=== PATIENT | female | born 1935 | race Caucasian/White ===

== ENCOUNTER 2017-05-27 11:58 | Outpatient (CLI) | payer MEDICARE, OTHER ==
[2017-05-27 13:13] LABS: Hemoglobin 13.5 g/dL (12.0-16.0); Mean Corpuscular Hemoglobin 30.4 pg (27.0-31.0); Mean Corpuscular Volume 92.3 fl (81.0-99.0); Mean Platelet Volume 8.8 fL (7.4-10.4); Platelet Count 245 thou/uL (130-400); RBC Distribution Width 12.7 % (11.5-14.5); Red Blood Cell (RBC) Count 4.42 mill/uL (4.20-5.40); White Blood Cell (WBC) Count 7.9 thou/uL (4.8-10.8)
[2017-05-27 13:18] LABS: Bilirubin Negative (Negative); Blood, Urine Negative (Negative); Clarity CLEAR (Clear); Glucose, Urine (Dipstick) Negative (Negative); Leukocyte Small (Negative); Nitrite Negative (Negative); Protein, Urine (Dipstick) 30 mg/dL (Neg-Trace); Specific Gravity, Urine 1.016 (1.002-1.036)
[2017-05-27 13:23] LABS: Bacteria/HPF None Seen HPF (None Seen); Hyaline Casts/LPF 0-3 HYALINE CAST LPF (0-3 Hyaline); RBC/HPF 0-3 HPF (0-3); Squamous Epithelial 0-3 HPF (0-3)
[2017-05-27 13:31] LABS: PTT 28.9 SEC (22.9-36.1)
[2017-05-27 13:43] LABS: Anion Gap 11 mmol/L (10-20); BUN (Urea Nitrogen) 20 mg/dL (9.8-20.1); Calc. Creatinine Clearance 0 mL/min (70-130); Carbon Dioxide 32 mmol/L (23-31); Chloride 100 mmol/L (98-107); Estimated GFR-MDRD 60; Glucose 89 mg/dL (83-110); Potassium 3.8 mmol/L (3.5-5.1); Sodium 139 mmol/L (136-145)
== END 2017-05-27 11:59 | disposition home or self-care (01) ==
LOC: LABBT 11:58
PROVIDERS: ATTEND Orthopaedic Surgery
DX: Z01.818 Encounter for other preprocedural examination (principal); M17.11 Unilateral primary osteoarthritis, right knee
CPT/HCPCS: 80048; 81001; 85027; 85610; 85730; 86850; 86900; 86901; 87081

== ENCOUNTER 2017-06-03 05:25 | Day surgery (SDC) | payer MEDICARE, OTHER ==
[2017-05-27 12:16] VITALS: BMI 25.9
[2017-06-03] MEDS ORDERED: CEFAZOLIN/Water 2 GM/20 ML SYRINGE ONE (05:57)
[2017-06-03] MEDS ORDERED: Vancomycin HCl 500 MG VIAL ONE (05:57)
[2017-06-03] MEDS ORDERED: Fentanyl 100 MCG/2 ML VIAL ONE ×2 (06:15→06:29)
[2017-06-03] MEDS ORDERED: Midazolam HCl 2 mg/2 ml Vial ONE (06:29)
[2017-06-03] MEDS ORDERED: Levofloxacin 500 mg/D5W 100 ml Premix Bag ONE (06:43)
[2017-06-03] MEDS ORDERED: Ondansetron HCl/PF 4 MG/2 ML Vial IVP PRN ×3 (06:57→09:19)
[2017-06-03] MEDS ORDERED: traMADol HCl 50 MG TAB PO PRN (06:57)
[2017-06-03] MEDS ORDERED: Ketorolac Tromethamine 30 MG/ML VIAL IVP PRN (06:57)
[2017-06-03] MEDS ORDERED: Zolpidem Tartrate 5 MG TAB PO PRN (06:57)
[2017-06-03] MEDS ORDERED: Promethazine HCl 25 MG/ML VIAL IM PRN ×2 (06:57→09:19)
[2017-06-03] MEDS ORDERED: Fentanyl 100 MCG/2 ML VIAL IV PRN (06:58)
[2017-06-03] MEDS ORDERED: HYDROcodone/Acetaminophen 7.5/325 mg Tablet PO PRN ×2 (06:58→06:59)
[2017-06-03] MEDS ORDERED: Bupivacaine/Epinephrine 0.25% 30 ML VIAL ONE (07:45)
[2017-06-03 08:41] LABS: Bilirubin Negative (Negative); Blood, Urine Negative (Negative); Clarity CLEAR (Clear); Glucose, Urine (Dipstick) Negative (Negative); Leukocyte Negative (Negative); Nitrite Negative (Negative); Protein, Urine (Dipstick) Trace mg/dL (Neg-Trace); Specific Gravity, Urine 1.014 (1.002-1.036); Urobilinogen 0.2 mg/dL (0.2-1.0); pH, Urine 5.5 (5.0-9.0)
[2017-06-03 08:44] LABS: Bacteria/HPF None Seen HPF (None Seen); Hyaline Casts/LPF 0-3 HYALINE CAST LPF (0-3 Hyaline); Pathc Cast-AUWi Flag 0.14 (0-2.49); RBC/HPF 0-3 HPF (0-3); Squamous Epithelial None Seen HPF (0-3); WBC/HPF None Seen HPF (0-3)
[2017-06-03] MEDS ORDERED: Labetalol HCl 100 MG/20 ML VIAL SLOW IVP PRN (09:19)
[2017-06-03] MEDS ORDERED: Promethazine HCl 25 MG/ML VIAL SLOW IVP PRN (09:19)
[2017-06-03] MEDS ORDERED: Labetalol HCl 100 MG/20 ML VIAL ONE (09:32)
[2017-06-03] MEDS ORDERED: Acetaminophen 325 MG TAB PO PRN (10:12)
[2017-06-03] MEDS ORDERED: Senokot S 8.6-50 MG TAB PO SCH ×2 (10:12→10:45)
[2017-06-03] MEDS ORDERED: Fentanyl 100 MCG/2 ML VIAL SLOW IVP PRN (10:12)
[2017-06-03] MEDS ORDERED: diphenhydrAMINE 25 MG CAP PO PRN (10:12)
[2017-06-03] MEDS ORDERED: Multivitamin W/ Minerals 1 TAB PO SCH ×2 (10:12→10:45)
[2017-06-03] MEDS ORDERED: HYDROcodone/Acetaminophen 10/325 mg Tablet PO PRN ×2 (10:12)
[2017-06-03] MEDS ORDERED: Aspirin 81 mg Enteric Coated Tablet PO SCH ×2 (10:12→10:45)
[2017-06-03] MEDS ORDERED: Ferrous Gluconate 324 MG TAB PO SCH ×2 (10:12→10:45)
--- NOTE | 2017-06-03 10:17 | OP ---
DATE OF PROCEDURE: 06/03/2017 PREOPERATIVE DIAGNOSIS: Right knee osteoarthritis. POSTOPERATIVE DIAGNOSIS: Right knee osteoarthritis. PROCEDURE PERFORMED: Right total knee arthroplasty. STAFF: Joshua Olson M.D. SERVICE CAR OPERATOR: Nestor Cazares PA-C ANESTHESIA: The patient received LMA with an adductor canal with a single shot sciatic. ESTIMATED BLOOD LOSS: 100 mL. TOURNIQUET TIME: 70 minutes at 300 mmHg. ANTIBIOTICS: Ancef 2 grams, vancomycin 1 gram, Levaquin 500 grams, TXA 1 gram. IMPLANTS: Hayden size 2 CR femur, a Triathlon size 2 CR femur, a size 2 primary Triathlon tibial ba seplate, a size 2 CS 9 mm Triathlon X3 poly and an S27 symmetric Triathlon X3 poly patella button. COMPLICATIONS: None. HISTORY OF PRESENT ILLNESS: Ms. Gallego is a pleasant 82-year-old female who presented to me with a hi story of right knee pain. The patient had a history of right knee pain, failed conservative measures . The patient understood the risks and benefits of right total knee arthroplasty to include pain, sc ar, bleeding, infection, damage to vital structures, decreased range of motion or strength, continued pain despite surgical intervention, loss of life or limb. The patient understood the risks and bene fits and elected to proceed. PROCEDURE NOTE: Time-out was performed designating the patient's right lower extremity as the operat jaja site based on sight, consents, markings. After completion of timeout, the patient's right lower extremity was prepped and draped in sterile fashion. Tourniquet was brought up and left up for a tot al of 70 minutes. The patient's anterior midline incision was made medial patellar approach was made . We excised the fat pad, released soft tissues medially over the patella, took down some of them orozco periorly over the femur, exposed the distal femur, mapped the distal femur, cut 0 degrees varus valgu s 10/8 with 4 degrees of slope. The patient had the fragment excised. We then moved the medial late ral meniscus. We placed our guide to measure our sizing, pinned it into place. On 3 views right ext ernal rotation, sized to a 3, pinned it into place, cut, felt that the anterior cut needed to be a la rger so we cut for a 2, removed the excess bone. We cut all of our anterior, posterior chamfer cuts, removed excess bone, placed a posterior PCL retractor into position, mapped out our tibia, cut mappe d out and placed our jig, cut our femur into 2, 7, 4 degrees posterior slope. The patient had sectio n of bone resected. We then placed a lamina negative notcher, medial lateral menisci posterior osteophytes, decompressed the PCL and the ACL, had good overall alignment of the knee, elevated the soft tissues a way. I liked the overall position. We then pinned our tibial tray size 2 tibial tray in line with tima owen anterior 1/3 of the patella tibial tubercle down the length of the femur. We then placed our poly , placed our femoral implant into position. We pulled it into full flexion and extension. We had a little bit of flexion, but the patient had good overall tracking was stable. It came to full extensi on, stable in flexion and mid flexion as well as in full extension. We then removed our final implan ts, placed our keel for a size 2, removed all the implants. We cut our patella down from about 22 to about 11 mm, placed A27 patella symmetrically retracted and I liked that, so we drilled holes for ou r femur and then cut our keel for tibia. Removed all the implants, cemented our tibia, placed our po ly, removed any excess cement before placing our poly or our tibia, placed our femur in position, rem radha all the blood and cement, washed, cemented our femur into place, removed any excess cement. We then everted, placed our patellar button and cemented in place, removed all excess cement. We then f lexed the knee up, removed the remaining cement, washed the joint, everted the patella, closing with #2 Vicryl. We closed with 2 Quill, 0 Quill, 2-0 Quill, and glue. The patient will be admitted for Jose Hernadez postop protocol. Aspirin twice a day and follow in-house. Before we closed the skin we in jected 30 mL of Marcaine into the joint to help with hemostasis, epinephrine as well to help with nik n control.
[2017-06-03] MEDS: Dextrose 5 %-0.45 % NaCl 1,000 ML IV SCH ×2 (11:14→21:09)
--- NOTE | 2017-06-03 11:31 | RAD ---
RIGHT KNEE 2 VIEWS: Date: 06/03/17 HISTORY: 82-year-old female with history of status post total right knee replacement. FINDINGS: Recent total right knee replacement changes are noted. No dislocation or periprosthetic fracture. IMPRESSION: Unremarkable recent total knee replacement. POS: MANGO
--- NOTE | 2017-06-03 13:17 | PDOC.PN ---
- Subjective Encounter Start Date: 06/03/17 Encounter Start Time: 13:15 Pt seen for management of medical comorbidities, including hypertension. Denies chest pain, shortness of breath, fevers or chills. - Objective MAR Reviewed: Yes Vital Signs & Weight: Vital Signs (12 hours) Temp Pulse Resp BP Pulse Ox 06/03/17 10:45 98.1 F 70 18 161/73 H 95 Weight Weight 124 lb Phys Exam - Physical Examination Constitutional: NAD HEENT: moist MMs Neck: supple Respiratory: clear to auscultation bilateral Cardiovascular: RRR Gastrointestinal: soft s/p R knee surgery Psychiatric: normal affect Dx/Plan (1) HTN (hypertension) Code(s): I10 - ESSENTIAL (PRIMARY) HYPERTENSION Status: Chronic Comment: Resume home medications including hydrochlorothiazide and beta isaias. Monitor vital signs, titrate antihypertensives as needed. PRN IV hydralazine for blood pressure spikes. (2) Hypothyroidism Code(s): E03.9 - HYPOTHYROIDISM, UNSPECIFIED Status: Chronic Comment: continue synthroid (3) Dyslipidemia Code(s): E78.5 - HYPERLIPIDEMIA, UNSPECIFIED Status: Chronic Comment: continue statin - Plan plan discussed w/ family, PT/OT, out of bed/ambulate * . Patient is full code. DVT prophylaxis and pain management per orthopedic surgery. Review of Systems - Review of Systems Constitutional: negative: fever, chills, sweats, weakness Respiratory: negative: Cough, Shortness of Breath, Wheezing Gastrointestinal: negative: Nausea, Vomiting, Abdominal Pain Musculoskeletal: Other (R knee pain /10) - Medications/Allergies Allergies/Adverse Reactions: Allergies Allergy/AdvReac Type Severity Reaction Status Date / Time codeine Allergy Rash Verified 05/27/17 12:19 Medications: Current Medications Acetaminophen (Tylenol) 650 mg PO Q4H PRN PRN Reason: VEGA/ T > 101F; Mild Pain (1-3) Hydrocodone Bitart/Acetaminophen ([place] 7.5/325) 1 tab PO Q4H PRN PRN Reason: Mild Pain (1-3) Hydrocodone Bitart/Acetaminophen ([place] 7.5/325) 2 tab PO Q4H PRN PRN Reason: Moderate Pain (4-6) Hydrocodone Bitart/Acetaminophen ([place] 10/325) 1 tab PO Q4H PRN PRN Reason: Moderate Pain (4-6) Hydrocodone Bitart/Acetaminophen ([place] 10/325) 2 tab PO Q4H PRN PRN Reason: Severe Pain (7-10) Aspirin (Ecotrin) 81 mg PO BID [facility] Atenolol (Tenormin) 50 mg PO HS [facility] Cefazolin Sodium (Ancef) 2 gm SLOW IVP Q8HR [facility] Stop: 06/03/17 22:01 Diphenhydramine HCl (Benadryl) 25 mg PO Q6H PRN PRN Reason: Itching Fentanyl (Sublimaze) 50 mcg IV Q1H PRN PRN Reason: BREAKTHROUGH PAIN Fentanyl (Sublimaze) 100 mcg SLOW IVP Q1H PRN PRN Reason: Severe Pain (7-10) Ferrous Gluconate (Fergon) 324 mg PO BID [facility] Hydralazine HCl (Apresoline) 10 mg SLOW IVP Q6H PRN PRN Reason: SBP Greater Than 170 Hydrochlorothiazide (Hydrochlorothiazide) 25 mg PO QAM [facility] Bupivacaine HCl 50 ml/ Sodium (Chloride) 100 mls @ 0 mls/hr NERVE BLCK INF [facility] PRN Reason: As Directed Dextrose/Sodium Chloride (D5 1/2 Ns) 1,000 mls @ 100 mls/hr IV .Q10H [facility] Last Admin: 06/03/17 11:14 Dose: Not Given Vancomycin HCl 1 gm/ Device 200 mls @ 200 mls/hr IVPB 1800 [facility] Stop: 06/03/17 18:59 Iron/Minerals/Multivitamins (Theragran M) 1 tab PO DAILY [facility] Ketorolac Tromethamine (Toradol) 15 mg IVP Q6H PRN PRN Reason: Moderate Pain (4-6) Stop: 06/06/17 06:58 Labetalol HCl (Normodyne) 10 mg SLOW IVP Q10MIN PRN PRN Reason: SBP Greater Than 180 Stop: 06/04/17 09:20 Levothyroxine Sodium (Synthroid) 50 mcg PO QAM [facility] Ondansetron HCl (Zofran) 4 mg IVP Q6H PRN PRN Reason: Nausea/Vomiting Promethazine HCl (Phenergan) 12.5 mg IM Q4H PRN PRN Reason: Nausea Senna/Docusate Sodium (Senokot S) 2 tab PO BID [facility] Simvastatin (Zocor) 20 mg PO HS [facility]UE Sodium Chloride (Flush - Normal Saline) 10 ml IVF PRN PRN PRN Reason: Saline Flush Tramadol HCl (Ultram) 50 mg PO Q6H PRN PRN Reason: Mild Pain (1-3) Tramadol HCl (Ultram) 100 mg PO Q6H PRN PRN Reason: Moderate Pain 4-6 Zolpidem Tartrate (Ambien) 5 mg PO HSPRN PRN PRN Reason: Insomnia
[2017-06-03] MEDS: CEFAZOLIN/Water 2 GM/20 ML SYRINGE SLOW IVP SCH ×2 (14:18→21:21)
[2017-06-03] MEDS ORDERED: Ropivacaine 0.5% HCl/PF (150 MG/30 ML VIAL) ONE (16:23)
[2017-06-03] MEDS ORDERED: Ropivacaine 0.2% HCl/PF (40 MG/20 ML VIAL) ONE (16:23)
[2017-06-03] MEDS ORDERED: Ondansetron HCl/PF 4 MG/2 ML Vial ONE (16:37)
[2017-06-03] MEDS ORDERED: PROPOFOL 200 MG/20 ML VIAL ONE (16:37)
[2017-06-03] MEDS ORDERED: Dexamethasone 20 MG/5 ML VIAL ONE (16:37)
[2017-06-03] MEDS ORDERED: Lidocaine 1% PF 5 ML VIAL ONE (16:37)
[2017-06-03] MEDS ORDERED: Vancomycin HCl 1 GM in Premix Bag 1 BAG IVPB SCH (18:00)
[2017-06-03] MEDS: Ferrous Gluconate 324 MG TAB PO SCH (21:13)
[2017-06-03] MEDS: Aspirin 81 mg Enteric Coated Tablet PO SCH (21:13)
[2017-06-03] MEDS: Senokot S 8.6-50 MG TAB PO SCH (21:13)
[2017-06-03] MEDS: Atenolol 50 MG TAB PO SCH (21:13)
[2017-06-03] MEDS: Simvastatin 20 MG TAB PO SCH (21:14)
[2017-06-03] MEDS: Bupivacaine 0.5% 50 ML in Sodium Chloride 0.9% 50 ML NERVE BLCK SCH (21:30)
[2017-06-04] MEDS: hydrALAZINE 20 MG/ML VIAL SLOW IVP PRN (04:04)
[2017-06-04] MEDS: Levothyroxine Sodium 50 MCG TAB PO SCH (04:05)
[2017-06-04 04:25] LABS: Hemoglobin 10.9 g/dL (12.0-16.0); Mean Corpuscular HGB CONC 33.3 g/dL (32.0-36.0); Mean Corpuscular Hemoglobin 30.5 pg (27.0-31.0); Mean Corpuscular Volume 91.6 fl (81.0-99.0); Mean Platelet Volume 8.6 fL (7.4-10.4); Platelet Count 223 thou/uL (130-400); RBC Distribution Width 12.8 % (11.5-14.5); Red Blood Cell (RBC) Count 3.57 mill/uL (4.20-5.40); White Blood Cell (WBC) Count 10.8 thou/uL (4.8-10.8)
[2017-06-04] MEDS: Dextrose 5 %-0.45 % NaCl 1,000 ML IV SCH ×3 (08:06→21:41)
[2017-06-04] MEDS: Hydrochlorothiazide 25 MG TAB PO SCH (08:52)
[2017-06-04] MEDS: Senokot S 8.6-50 MG TAB PO SCH ×2 (08:52→20:26)
[2017-06-04] MEDS: Ferrous Gluconate 324 MG TAB PO SCH ×2 (08:53→20:26)
[2017-06-04] MEDS: Multivitamin W/ Minerals 1 TAB PO SCH (08:53)
[2017-06-04] MEDS: Aspirin 81 mg Enteric Coated Tablet PO SCH ×2 (08:53→20:25)
[2017-06-04] MEDS: Bupivacaine 0.5% 50 ML in Sodium Chloride 0.9% 50 ML NERVE BLCK SCH (11:14)
--- NOTE | 2017-06-04 14:18 | PDOC.PN ---
- Subjective Encounter Start Date: 06/04/17 Encounter Start Time: 13:00 Pt seen for followup re: hypertension. Denies chest pain, shortness of breath, fevers or chills. - Objective MAR Reviewed: Yes Vital Signs & Weight: Vital Signs (12 hours) Temp Pulse Resp BP BP BP Pulse Ox 06/04/17 08:00 97.3 F L 64 15 99 06/04/17 07:43 97.3 F L 64 15 145/63 H 99 06/04/17 04:04 69 189/75 H 06/04/17 03:59 98.5 F 69 18 189/75 H 97 Weight Admit Weight 124 lb Weight 124 lb I&O: 06/03/17 06/04/17 06/05/17 06:59 06:59 06:59 Intake Total 1200 Output Total 1300 Balance -100 Result Diagrams: 06/04/17 03:26 Phys Exam - Physical Examination Constitutional: NAD HEENT: moist MMs Neck: supple Respiratory: clear to auscultation bilateral Cardiovascular: RRR Gastrointestinal: soft s/p R knee surgery Neurological: moves all 4 limbs Psychiatric: normal affect Dx/Plan (1) HTN (hypertension) Code(s): I10 - ESSENTIAL (PRIMARY) HYPERTENSION Status: Chronic Comment: Continue hydrochlorothiazide and beta isaias. Monitor vital signs, titrate antihypertensives as needed. Pt received one dose of IV hydralazine. (2) Hypothyroidism Code(s): E03.9 - HYPOTHYROIDISM, UNSPECIFIED Status: Chronic Comment: stable , continue synthroid (3) Dyslipidemia Code(s): E78.5 - HYPERLIPIDEMIA, UNSPECIFIED Status: Chronic Comment: stable , continue statin - Plan * . Review of Systems - Review of Systems Respiratory: negative: Cough, Shortness of Breath, Hemoptysis, SOB with Excertion, Wheezing Cardiovascular: negative: chest pain, palpitations, orthopnea, edema, light headedness - Medications/Allergies Allergies/Adverse Reactions: Allergies Allergy/AdvReac Type Severity Reaction Status Date / Time codeine Allergy Rash Verified 05/27/17 12:19 Medications: Current Medications Acetaminophen (Tylenol) 650 mg PO Q4H PRN PRN Reason: VEGA/ T > 101F; Mild Pain (1-3) Hydrocodone Bitart/Acetaminophen ([place] 7.5/325) 1 tab PO Q4H PRN PRN Reason: Mild Pain (1-3) Hydrocodone Bitart/Acetaminophen ([place] 7.5/325) 2 tab PO Q4H PRN PRN Reason: Moderate Pain (4-6) Hydrocodone Bitart/Acetaminophen ([place] 10/325) 1 tab PO Q4H PRN PRN Reason: Moderate Pain (4-6) Hydrocodone Bitart/Acetaminophen ([place] 10/325) 2 tab PO Q4H PRN PRN Reason: Severe Pain (7-10) Aspirin (Ecotrin) 81 mg PO BID [facility] Last Admin: 06/04/17 08:53 Dose: 81 mg Atenolol (Tenormin) 50 mg PO HS [facility] Last Admin: 06/03/17 21:13 Dose: 50 mg Diphenhydramine HCl (Benadryl) 25 mg PO Q6H PRN PRN Reason: Itching Fentanyl (Sublimaze) 50 mcg IV Q1H PRN PRN Reason: BREAKTHROUGH PAIN Fentanyl (Sublimaze) 100 mcg SLOW IVP Q1H PRN PRN Reason: Severe Pain (7-10) Ferrous Gluconate (Fergon) 324 mg PO BID [facility] Last Admin: 06/04/17 08:53 Dose: 324 mg Hydralazine HCl (Apresoline) 10 mg SLOW IVP Q6H PRN PRN Reason: SBP Greater Than 170 Last Admin: 06/04/17 04:04 Dose: 10 mg Hydrochlorothiazide (Hydrochlorothiazide) 25 mg PO QAM [facility] Last Admin: 06/04/17 08:52 Dose: 25 mg Bupivacaine HCl 50 ml/ Sodium (Chloride) 100 mls @ 0 mls/hr NERVE BLCK INF [facility] PRN Reason: As Directed Last Admin: 06/04/17 11:14 Dose: 100 mls Dextrose/Sodium Chloride (D5 1/2 Ns) 1,000 mls @ 100 mls/hr IV .Q10H [facility] Last Admin: 06/04/17 08:06 Dose: Not Given Iron/Minerals/Multivitamins (Theragran M) 1 tab PO DAILY [facility] Last Admin: 06/04/17 08:53 Dose: 1 tab Ketorolac Tromethamine (Toradol) 15 mg IVP Q6H PRN PRN Reason: Moderate Pain (4-6) Stop: 06/06/17 06:58 Last Admin: 06/04/17 03:50 Dose: 15 mg Levothyroxine Sodium (Synthroid) 50 mcg PO 0600 [facility] Last Admin: 06/04/17 04:05 Dose: 50 mcg Ondansetron HCl (Zofran) 4 mg IVP Q6H PRN PRN Reason: Nausea/Vomiting Promethazine HCl (Phenergan) 12.5 mg IM Q4H PRN PRN Reason: Nausea Senna/Docusate Sodium (Senokot S) 2 tab PO BID [facility] Last Admin: 06/04/17 08:52 Dose: 2 tab Simvastatin (Zocor) 20 mg PO HS [facility] Last Admin: 06/03/17 21:14 Dose: 20 mg Sodium Chloride (Flush - Normal Saline) 10 ml IVF PRN PRN PRN Reason: Saline Flush Tramadol HCl (Ultram) 50 mg PO Q6H PRN PRN Reason: Mild Pain (1-3) Tramadol HCl (Ultram) 100 mg PO Q6H PRN PRN Reason: Moderate Pain 4-6 Zolpidem Tartrate (Ambien) 5 mg PO HSPRN PRN PRN Reason: Insomnia
[2017-06-04] MEDS: traMADol HCl 50 MG TAB PO PRN (16:14)
[2017-06-04] MEDS: Atenolol 50 MG TAB PO SCH (20:26)
[2017-06-04] MEDS: Simvastatin 20 MG TAB PO SCH (20:27)
[2017-06-05] MEDS: hydrALAZINE 20 MG/ML VIAL SLOW IVP PRN ×2 (00:30→23:57)
[2017-06-05] MEDS: Bupivacaine 0.5% 50 ML in Sodium Chloride 0.9% 50 ML NERVE BLCK SCH (00:32)
[2017-06-05] MEDS: traMADol HCl 50 MG TAB PO PRN (00:32)
[2017-06-05 05:08] LABS: Hemoglobin 10.9 g/dL (12.0-16.0); Mean Corpuscular HGB CONC 34.4 g/dL (32.0-36.0); Mean Corpuscular Hemoglobin 31.8 pg (27.0-31.0); Mean Corpuscular Volume 92.2 fl (81.0-99.0); Mean Platelet Volume 8.9 fL (7.4-10.4); Platelet Count 211 thou/uL (130-400); RBC Distribution Width 12.8 % (11.5-14.5); Red Blood Cell (RBC) Count 3.45 mill/uL (4.20-5.40); White Blood Cell (WBC) Count 11.4 thou/uL (4.8-10.8)
[2017-06-05] MEDS: Levothyroxine Sodium 50 MCG TAB PO SCH (06:42)
[2017-06-05] MEDS: Aspirin 81 mg Enteric Coated Tablet PO SCH ×2 (08:29→20:48)
[2017-06-05] MEDS: Senokot S 8.6-50 MG TAB PO SCH ×2 (08:29→20:49)
[2017-06-05] MEDS: Ferrous Gluconate 324 MG TAB PO SCH ×2 (08:29→20:49)
[2017-06-05] MEDS: Hydrochlorothiazide 25 MG TAB PO SCH (08:29)
[2017-06-05] MEDS: Multivitamin W/ Minerals 1 TAB PO SCH (08:29)
[2017-06-05] MEDS ORDERED: Amlodipine 10 MG TAB PO SCH (14:00)
[2017-06-05] MEDS: Dextrose 5 %-0.45 % NaCl 1,000 ML IV SCH ×2 (15:03→23:24)
--- NOTE | 2017-06-05 17:08 | PDOC.PN ---
- Subjective Encounter Start Date: 06/05/17 Encounter Start Time: 17:06 Pt seen for followup re: lethargy. Sleepy but arousable, denies chest pain, shortness of breath, fevers or chills. No nausea or vomiting. - Objective MAR Reviewed: Yes Vital Signs & Weight: Vital Signs (12 hours) Temp Pulse Resp BP BP Pulse Ox 06/05/17 15:15 99.0 F 65 16 153/74 H 94 L 06/05/17 14:54 62 155/66 H 06/05/17 11:37 98.5 F 62 14 151/73 H 92 L 06/05/17 08:00 99.0 F 65 16 92 L 06/05/17 07:54 99.5 F 64 16 151/69 H 93 L Weight Admit Weight 124 lb Weight 124 lb I&O: 06/04/17 06/05/17 06/06/17 06:59 06:59 06:59 Intake Total 1200 576 Output Total 1300 4050 1600 Balance -100 -9777 -5925 Result Diagrams: 06/05/17 17:59 06/05/17 17:59 Phys Exam - Physical Examination Constitutional: NAD HEENT: moist MMs Neck: supple Respiratory: clear to auscultation bilateral Cardiovascular: RRR Gastrointestinal: soft s/p R knee surgery Neurological: moves all 4 limbs Psychiatric: normal affect Dx/Plan (1) Acute encephalopathy Code(s): G93.40 - ENCEPHALOPATHY, UNSPECIFIED Status: Acute Comment: Initiate workup including CT brain, urinalysis and bloodwork. (2) HTN (hypertension) Code(s): I10 - ESSENTIAL (PRIMARY) HYPERTENSION Status: Chronic Comment: SBP in 130s. Discussed with patient and daughter. They will followup with PCP to reassess her blood pressure medications. Pt received one dose of hydralazine overnight. (3) Hypothyroidism Code(s): E03.9 - HYPOTHYROIDISM, UNSPECIFIED Status: Chronic Comment: stable (4) Dyslipidemia Code(s): E78.5 - HYPERLIPIDEMIA, UNSPECIFIED Status: Chronic Comment: stable - Plan * . Review of Systems - Review of Systems Respiratory: negative: Cough, Dry, Shortness of Breath, Hemoptysis, SOB with Excertion, Pleuritic Pain, Sputum, Wheezing Cardiovascular: negative: chest pain, palpitations, orthopnea, paroxysmal nocturnal dyspnea, edema, light headedness Neurological: negative: Weakness, Numbness, Incoordination, Change in Speech, Confusion, Seizures - Medications/Allergies Allergies/Adverse Reactions: Allergies Allergy/AdvReac Type Severity Reaction Status Date / Time codeine Allergy Rash Verified 05/27/17 12:19 Medications: Current Medications Acetaminophen (Tylenol) 650 mg PO Q4H PRN PRN Reason: VEGA/ T > 101F; Mild Pain (1-3) Hydrocodone Bitart/Acetaminophen ([place] 7.5/325) 1 tab PO Q4H PRN PRN Reason: Mild Pain (1-3) Hydrocodone Bitart/Acetaminophen ([place] 7.5/325) 2 tab PO Q4H PRN PRN Reason: Moderate Pain (4-6) Hydrocodone Bitart/Acetaminophen ([place] 10/325) 1 tab PO Q4H PRN PRN Reason: Moderate Pain (4-6) Hydrocodone Bitart/Acetaminophen ([place] 10/325) 2 tab PO Q4H PRN PRN Reason: Severe Pain (7-10) Amlodipine Besylate (Norvasc) 5 mg PO DAILY [facility] Aspirin (Ecotrin) 81 mg PO BID [facility] Last Admin: 06/05/17 08:29 Dose: 81 mg Atenolol (Tenormin) 50 mg PO HS [facility] Last Admin: 06/04/17 20:26 Dose: 50 mg Diphenhydramine HCl (Benadryl) 25 mg PO Q6H PRN PRN Reason: Itching Fentanyl (Sublimaze) 50 mcg IV Q1H PRN PRN Reason: BREAKTHROUGH PAIN Fentanyl (Sublimaze) 100 mcg SLOW IVP Q1H PRN PRN Reason: Severe Pain (7-10) Ferrous Gluconate (Fergon) 324 mg PO BID [facility] Last Admin: 06/05/17 08:29 Dose: 324 mg Hydralazine HCl (Apresoline) 10 mg SLOW IVP Q6H PRN PRN Reason: SBP Greater Than 170 Last Admin: 06/05/17 00:30 Dose: 10 mg [facility]chloroth[facility]) [facility] Last Admin: 06/05/17 08:29 Dose: 25 mg Bupivacaine HCl 50 ml/ Sodium (Chloride) 100 mls @ 0 mls/hr NERVE BLCK INF [facility] PRN Reason: As Directed Last Admin: 06/05/17 00:32 Dose: 100 mls Dextrose/Sodium Chloride (D5 1/2 Ns) 1,000 mls @ 100 mls/hr IV .Q10H [facility] Last Admin: 06/05/17 15:03 Dose: Not Given Iron/Minerals/Multivitamins (Theragran M) 1 tab PO DAILY [facility] Last Admin: 06/05/17 08:29 Dose: 1 tab Ketorolac Tromethamine (Toradol) 15 mg IVP Q6H PRN PRN Reason: Moderate Pain (4-6) Stop: 06/06/17 06:58 Last Admin: 06/04/17 03:50 Dose: 15 mg Levothyroxine Sodium (Synthroid) 50 mcg PO 0600 [facility] Last Admin: 06/05/17 06:42 Dose: 50 mcg Ondansetron HCl (Zofran) 4 mg IVP Q6H PRN PRN Reason: Nausea/Vomiting Promethazine HCl (Phenergan) 12.5 mg IM Q4H PRN PRN Reason: Nausea Senna/Docusate Sodium (Senokot S) 2 tab PO BID [facility] Last Admin: 06/05/17 08:29 Dose: 2 tab Simvastatin (Zocor) 20 mg PO HS [facility] Last Admin: 06/04/17 20:27 Dose: 20 mg Sodium Chloride (Flush - Normal Saline) 10 ml IVF PRN PRN PRN Reason: Saline Flush Tramadol HCl (Ultram) 50 mg PO Q6H PRN PRN Reason: Mild Pain (1-3) Tramadol HCl (Ultram) 100 mg PO Q6H PRN PRN Reason: Moderate Pain 4-6 Last Admin: 06/05/17 00:32 Dose: 100 mg Zolpidem Tartrate (Ambien) 5 mg PO HSPRN PRN PRN Reason: Insomnia
[2017-06-05 18:08] LABS: #Eosinphils 0.1 thou/uL (0.0-0.7); #Lymphocytes 1.9 thou/uL (1.20-3.40); #Monocytes 0.9 thou/uL (0.11-0.59); #Neutrophils 11.3 thou/uL (1.40-6.50); %Basophils 0.2 % (0.0-1.0); %Eosinophils 0.4 % (0.0-10.0); %Lymphocytes 13.2 % (21.0-51.0); %Monocytes 6.4 % (0.0-10.0); %Neutrophils 79.8 % (42.0-75.0); Hemoglobin 12.1 g/dL (12.0-16.0); Mean Corpuscular Hemoglobin 31.3 pg (27.0-31.0); Mean Corpuscular Volume 91.9 fl (81.0-99.0); Mean Platelet Volume 8.1 fL (7.4-10.4); Platelet Count 231 thou/uL (130-400); RBC Distribution Width 12.8 % (11.5-14.5); Red Blood Cell (RBC) Count 3.86 mill/uL (4.20-5.40); White Blood Cell (WBC) Count 14.1 thou/uL (4.8-10.8)
[2017-06-05 18:28] LABS: Lactic Acid 1.6 mmol/L (0.5-2.2)
[2017-06-05 18:32] LABS: ALT (SGPT) 7 U/L (8-55); AST (SGOT) 21 U/L (5-34); Albumin 3.8 g/dL (3.4-4.8); Alkaline Phosphatase 77 U/L (40-150); Anion Gap 15 mmol/L (10-20); BUN (Urea Nitrogen) 20 mg/dL (9.8-20.1); Bilirubin, Total 0.8 mg/dL (0.2-1.2); Calc. Creatinine Clearance 39 mL/min (70-130); Calcium 9.5 mg/dL (7.8-10.44); Carbon Dioxide 27 mmol/L (23-31); Chloride 96 mmol/L (98-107); Estimated GFR-MDRD 54; Globulin 3.4 g/dL (2.4-3.5); Glucose 119 mg/dL (83-110); Potassium 3.6 mmol/L (3.5-5.1); Protein, Total 7.2 g/dL (6.0-8.3); Sodium 134 mmol/L (136-145)
[2017-06-05 18:56] LABS: Bilirubin Negative (Negative); Blood, Urine Small (Negative); Clarity CLOUDY (Clear); Glucose, Urine (Dipstick) Negative (Negative); Leukocyte Negative (Negative); Nitrite Negative (Negative); Protein, Urine (Dipstick) 100 mg/dL (Neg-Trace); Specific Gravity, Urine 1.023 (1.002-1.036); Urobilinogen 0.2 mg/dL (0.2-1.0); pH, Urine 5.5 (5.0-9.0)
[2017-06-05 18:57] LABS: Bacteria/HPF None Seen HPF (None Seen); Hyaline Casts/LPF 0-3 HYALINE CAST LPF (0-3 Hyaline); Pathc Cast-AUWi Flag 0.43 (0-2.49); RBC/HPF 21-50 HPF (0-3); Squamous Epithelial 0-3 HPF (0-3); WBC/HPF 0-3 HPF (0-3)
--- NOTE | 2017-06-05 19:03 | CT ---
CT OF THE BRAIN WITHOUT CONTRAST: 06/05/17 INDICATION: History of drowsiness and difficulty following commands. FINDINGS: There is severe chronic small vessel white matter ischemic change. There is generalized cerebral atro phy. Septum pellucidum and third ventricle are midline. No definite acute infarct, hemorrhage or hydr ocephalus is present. The mastoid air cells and paranasal sinuses are clear. The skull is intact. IMPRESSION: 1. No acute intracranial abnormality. 2. Severe chronic small vessel white matter ischemic change. 3. Mild generalized cerebral atrophy. POS: MANGO
[2017-06-05] MEDS: Simvastatin 20 MG TAB PO SCH (20:49)
[2017-06-05] MEDS: Atenolol 50 MG TAB PO SCH (20:49)
[2017-06-05] MEDS: Sodium Chloride 0.9% 1,000 ML IV SCH (22:30)
[2017-06-06] MEDS: Sodium Chloride 0.9% 1,000 ML IV SCH ×3 (03:24→17:02)
[2017-06-06 05:32] LABS: Hemoglobin 10.4 g/dL (12.0-16.0); Mean Corpuscular HGB CONC 33.8 g/dL (32.0-36.0); Mean Corpuscular Hemoglobin 30.8 pg (27.0-31.0); Mean Platelet Volume 8.7 fL (7.4-10.4); Platelet Count 193 thou/uL (130-400); RBC Distribution Width 12.7 % (11.5-14.5); Red Blood Cell (RBC) Count 3.36 mill/uL (4.20-5.40); White Blood Cell (WBC) Count 10.4 thou/uL (4.8-10.8)
[2017-06-06] MEDS: Levothyroxine Sodium 50 MCG TAB PO SCH (05:41)
[2017-06-06] MEDS: Dextrose 5 %-0.45 % NaCl 1,000 ML IV SCH ×2 (08:53→17:02)
[2017-06-06] MEDS: Amlodipine 5 MG TAB PO SCH (08:59)
[2017-06-06] MEDS: Senokot S 8.6-50 MG TAB PO SCH ×2 (08:59→21:11)
[2017-06-06] MEDS: Hydrochlorothiazide 25 MG TAB PO SCH (08:59)
[2017-06-06] MEDS: Aspirin 81 mg Enteric Coated Tablet PO SCH ×2 (09:00→21:10)
[2017-06-06] MEDS: Multivitamin W/ Minerals 1 TAB PO SCH (09:00)
[2017-06-06] MEDS: Ferrous Gluconate 324 MG TAB PO SCH ×2 (09:00→21:10)
--- NOTE | 2017-06-06 13:48 | PDOC.PN ---
- Subjective Encounter Start Date: 06/06/17 Encounter Start Time: 11:00 Subjective: awake, responds to verbal stimuli -: daughter at bedside says she is getting better cognitively -: still has high residual bladder volume around 400's - Objective MAR Reviewed: Yes Vital Signs & Weight: Vital Signs (12 hours) Temp Pulse Pulse Resp BP BP BP 06/06/17 12:13 99.2 F 66 14 169/72 H 06/06/17 10:01 70 159/69 H 06/06/17 08:59 70 165/73 H 06/06/17 08:09 99.0 F 70 14 165/73 H 06/06/17 03:27 99.5 F 69 16 150/76 H Pulse Ox Pulse Ox 06/06/17 12:13 93 L 06/06/17 10:01 94 L 06/06/17 08:59 06/06/17 08:09 94 L 06/06/17 03:27 98 Weight Admit Weight 124 lb Weight 124 lb I&O: 06/05/17 06/06/17 06/07/17 06:59 06:59 06:59 Intake Total 2236 Output Total 4050 2175 75 Balance -4050 61 -75 Result Diagrams: 06/06/17 04:13 06/05/17 17:59 Phys Exam - Physical Examination HEENT: PERRLA, moist MMs Neck: no JVD, supple Respiratory: no wheezing, no rales Cardiovascular: RRR, no significant murmur Gastrointestinal: soft, non-tender, positive bowel sounds Musculoskeletal: pulses present right knee post op changes+ Neurological: non-focal, moves all 4 limbs Dx/Plan (1) Status post total knee replacement, right Code(s): Z96.651 - PRESENCE OF RIGHT ARTIFICIAL KNEE JOINT Status: Acute (2) delerium Status: Acute Comment: post op, is resolving (3) Dyslipidemia Code(s): E78.5 - HYPERLIPIDEMIA, UNSPECIFIED Status: Chronic Comment: stable (4) HTN (hypertension) Code(s): I10 - ESSENTIAL (PRIMARY) HYPERTENSION Status: Chronic Qualifiers: Hypertension type: essential hypertension Qualified Code(s): I10 - Essential (primary) hypertension (5) Hypothyroidism Code(s): E03.9 - HYPOTHYROIDISM, UNSPECIFIED Status: Chronic Qualifiers: Hypothyroidism type: unspecified Qualified Code(s): E03.9 - Hypothyroidism , unspecified Comment: stable - Plan delerium is resolving -: dc iv fluids, encourage po intake -: dc plan in am home with HH, d/w daughter (one of them will stay with her) -: mobilize more per ortho advice -: is on asp bid, atenolol, synthroid and zocor * . Review of Systems - Medications/Allergies Allergies/Adverse Reactions: Allergies Allergy/AdvReac Type Severity Reaction Status Date / Time codeine Allergy Rash Verified 05/27/17 12:19 Medications: Current Medications Acetaminophen (Tylenol) 650 mg PO Q4H PRN PRN Reason: VEGA/ T > 101F; Mild Pain (1-3) Last Admin: 06/05/17 23:57 Dose: 650 mg Hydrocodone Bitart/Acetaminophen ([place] 7.5/325) 1 tab PO Q4H PRN PRN Reason: Mild Pain (1-3) Hydrocodone Bitart/Acetaminophen ([place] 7.5/325) 2 tab PO Q4H PRN PRN Reason: Moderate Pain (4-6) Hydrocodone Bitart/Acetaminophen ([place] 10/325) 1 tab PO Q4H PRN PRN Reason: Moderate Pain (4-6) Hydrocodone Bitart/Acetaminophen ([place] 10/325) 2 tab PO Q4H PRN PRN Reason: Severe Pain (7-10) Amlodipine Besylate (Norvasc) 5 mg PO DAILY [facility] Last Admin: 06/06/17 08:59 Dose: 5 mg Aspirin (Ecotrin) 81 mg PO BID [facility] Last Admin: 06/06/17 09:00 Dose: 81 mg Atenolol (Tenormin) 50 mg PO HS [facility] 234 [facility] Last Admin: 06/05/17 20:49 Dose: 50 mg Diphenhydramine HCl (Benadryl) 25 mg PO Q6H PRN PRN Reason: Itching Fentanyl (Sublimaze) 50 mcg IV Q1H PRN PRN Reason: BREAKTHROUGH PAIN Fentanyl (Sublimaze) 100 mcg SLOW IVP Q1H PRN PRN Reason: Severe Pain (7-10) Ferrous Gluconate (Fergon) 324 mg PO BID [facility] 234 [facility] Last Admin: 06/06/17 09:00 Dose: 324 mg Hydralazine HCl (Apresoline) 10 mg SLOW IVP Q6H PRN PRN Reason: SBP Greater Than 170 Last Admin: 06/05/17 23:57 Dose: 10 mg Hydrochlorothiazide (Hydrochlorothiazide) 25 mg PO QAM [facility] Last Admin: 06/06/17 08:59 Dose: 25 mg Bupivacaine HCl 50 ml/ Sodium (Chloride) 100 mls @ 0 mls/hr NERVE BLCK INF [facility] PRN Reason: As Directed Last Admin: 06/05/17 00:32 Dose: 100 mls Dextrose/Sodium Chloride (D5 1/2 Ns) 1,000 mls @ 100 mls/hr IV .Q10H [facility] Last Admin: 06/06/17 08:53 Dose: Not Given Sodium Chloride (Normal Saline 0.9%) 1,000 mls @ 150 mls/hr IV .Q6H40M [facility] 234 [facility]S [facility] Last Admin: 06/06/17 10:48 Dose: 1,000 mls Iron/Minerals/Multivitamins (Theragran M) 1 tab PO DAILY [facility] 234 [facility] Last Admin: 06/06/17 09:00 Dose: 1 tab Levothyroxine Sodium (Synthroid) 50 mcg PO 0600 [facility] Last Admin: 06/06/17 05:41 Dose: 50 mcg Ondansetron HCl (Zofran) 4 mg IVP Q6H PRN PRN Reason: Nausea/Vomiting Promethazine HCl (Phenergan) 12.5 mg IM Q4H PRN PRN Reason: Nausea Senna/Docusate Sodium (Senokot S) 2 tab PO BID [facility] Last Admin: 06/06/17 08:59 Dose: Not Given Simvastatin (Zocor) 20 mg PO HS [facility] 234 [facility] Last Admin: 06/05/17 20:49 Dose: 20 mg Sodium Chloride (Flush - Normal Saline) 10 ml IVF PRN PRN PRN Reason: Saline Flush Tramadol HCl (Ultram) 50 mg PO Q6H PRN PRN Reason: Mild Pain (1-3) Tramadol HCl (Ultram) 100 mg PO Q6H PRN PRN Reason: Moderate Pain 4-6 Last Admin: 06/05/17 00:32 Dose: 100 mg Zolpidem Tartrate (Ambien) 5 mg PO HSPRN PRN PRN Reason: Insomnia
[2017-06-06] MEDS: Atenolol 50 MG TAB PO SCH (21:10)
[2017-06-06] MEDS: Simvastatin 20 MG TAB PO SCH (21:10)
[2017-06-07] MEDS: Dextrose 5 %-0.45 % NaCl 1,000 ML IV SCH ×2 (02:14→14:59)
[2017-06-07] MEDS: Sodium Chloride 0.9% 1,000 ML IV SCH ×5 (02:15→23:26)
[2017-06-07] MEDS: Levothyroxine Sodium 50 MCG TAB PO SCH (05:47)
[2017-06-07 05:52] LABS: Hemoglobin 10.5 g/dL (12.0-16.0); Mean Corpuscular HGB CONC 33.2 g/dL (32.0-36.0); Mean Corpuscular Hemoglobin 30.3 pg (27.0-31.0); Mean Corpuscular Volume 91.2 fl (81.0-99.0); Mean Platelet Volume 8.8 fL (7.4-10.4); Platelet Count 217 thou/uL (130-400); RBC Distribution Width 12.4 % (11.5-14.5); Red Blood Cell (RBC) Count 3.48 mill/uL (4.20-5.40); White Blood Cell (WBC) Count 9.4 thou/uL (4.8-10.8)
[2017-06-07] MEDS: Multivitamin W/ Minerals 1 TAB PO SCH (09:36)
[2017-06-07] MEDS: Amlodipine 5 MG TAB PO SCH (09:36)
[2017-06-07] MEDS: Ferrous Gluconate 324 MG TAB PO SCH ×2 (09:36→22:16)
[2017-06-07] MEDS: Aspirin 81 mg Enteric Coated Tablet PO SCH ×2 (09:36→22:15)
[2017-06-07] MEDS: Hydrochlorothiazide 25 MG TAB PO SCH (09:36)
[2017-06-07] MEDS: Senokot S 8.6-50 MG TAB PO SCH ×2 (09:37→22:29)
[2017-06-07] MEDS: Atenolol 50 MG TAB PO SCH (22:16)
[2017-06-07] MEDS: Simvastatin 20 MG TAB PO SCH (22:16)
[2017-06-08] MEDS: Dextrose 5 %-0.45 % NaCl 1,000 ML IV SCH ×3 (01:23→22:23)
[2017-06-08] MEDS: Sodium Chloride 0.9% 1,000 ML IV SCH (02:28)
[2017-06-08 04:29] LABS: Hemoglobin 10.1 g/dL (12.0-16.0); Mean Corpuscular HGB CONC 34.7 g/dL (32.0-36.0); Mean Corpuscular Hemoglobin 31.6 pg (27.0-31.0); Mean Corpuscular Volume 90.9 fl (81.0-99.0); Mean Platelet Volume 8.3 fL (7.4-10.4); Platelet Count 241 thou/uL (130-400); RBC Distribution Width 12.3 % (11.5-14.5); Red Blood Cell (RBC) Count 3.21 mill/uL (4.20-5.40); White Blood Cell (WBC) Count 7.1 thou/uL (4.8-10.8)
[2017-06-08] MEDS: Levothyroxine Sodium 50 MCG TAB PO SCH (05:57)
[2017-06-08] MEDS: Hydrochlorothiazide 25 MG TAB PO SCH (11:17)
[2017-06-08] MEDS: Amlodipine 5 MG TAB PO SCH (11:18)
[2017-06-08] MEDS: Ferrous Gluconate 324 MG TAB PO SCH ×2 (11:18→22:20)
[2017-06-08] MEDS: Multivitamin W/ Minerals 1 TAB PO SCH (11:19)
[2017-06-08] MEDS: Senokot S 8.6-50 MG TAB PO SCH ×2 (11:19→22:22)
[2017-06-08] MEDS: Aspirin 81 mg Enteric Coated Tablet PO SCH ×2 (11:19→22:22)
--- NOTE | 2017-06-08 12:31 | ULT ---
ULTRASOUND RENAL BILATERAL STANDARD: Date: 06/08/17 HISTORY: Urinary retention. Evaluate for obstructive uropathy. COMPARISON: None. FINDINGS: Right kidney measures 9.4 x 4.0 x 4.3 cm. Left kidney measures 9.4 x 5.0 x 5.1 cm. Trace right perine phric fluid. No evidence of obstructive uropathy. No mass, hydronephrosis, or abnormal calcifications . Pre-void urinary bladder volume is 383 mL. Post-void volume is 270 mL. IMPRESSION: Incomplete emptying of the bladder with a post-void retention of 270 mL. POS: MANGO
--- NOTE | 2017-06-08 14:31 | PDOC.PN ---
- Subjective Encounter Start Date: 06/08/17 Encounter Start Time: 14:35 Subjective: No new complaints. -: No acute events overnight. - Objective MAR Reviewed: Yes Vital Signs & Weight: Vital Signs (12 hours) Temp Pulse Resp BP BP BP Pulse Ox 06/08/17 11:50 99.2 F 68 14 153/72 H 93 L 06/08/17 11:18 69 169/75 H 06/08/17 09:40 99.5 F 69 16 06/08/17 08:05 99.5 F 69 16 169/75 H 93 L 06/08/17 03:26 99.5 F 58 L 16 153/75 H 94 L Weight Admit Weight 124 lb Weight 124 lb I&O: 06/07/17 06/08/17 06/09/17 06:59 06:59 06:59 Intake Total 1000 533 240 Output Total 1284 1785 300 Balance -284 -1252 -60 Result Diagrams: 06/08/17 03:50 06/05/17 17:59 Phys Exam - Physical Examination Constitutional: NAD HEENT: PERRLA, moist MMs, sclera anicteric, oral pharynx no lesions Neck: no JVD, supple, full ROM Respiratory: no wheezing, no rales, no rhonchi, clear to auscultation bilateral Cardiovascular: RRR, no significant murmur, no rub Gastrointestinal: soft, non-tender, no distention, positive bowel sounds Musculoskeletal: no edema, pulses present Neurological: non-focal, moves all 4 limbs Psychiatric: normal affect, A&O x 3 Skin: no rash, normal turgor Dx/Plan (1) HTN (hypertension) Code(s): I10 - ESSENTIAL (PRIMARY) HYPERTENSION Status: Chronic Qualifiers: Hypertension type: essential hypertension Qualified Code(s): I10 - Essential (primary) hypertension Comment: Fairly well controlled but not at goal, likely 2/2 normal saline. (2) Status post total knee replacement, right Code(s): Z96.651 - PRESENCE OF RIGHT ARTIFICIAL KNEE JOINT Status: Acute Plan: Management per surgical service. (3) Dyslipidemia Code(s): E78.5 - HYPERLIPIDEMIA, UNSPECIFIED Status: Chronic Comment: stable (4) Hypothyroidism Code(s): E03.9 - HYPOTHYROIDISM, UNSPECIFIED Status: Chronic Qualifiers: Hypothyroidism type: unspecified Qualified Code(s): E03.9 - Hypothyroidism , unspecified Comment: Stable. Continue current regimen. (5) Poor appetite Code(s): R63.0 - ANOREXIA Status: Acute Comment: Start remeron and multivitamins. - Plan cont current plan of care, plan discussed w/ family, PT/OT Ms Gallego'musa blood pressure is fairly well controlle. IV fluids have been discontinued, so her BP should improve even more. I have started her on Remeron and a multivitamin to stimulate her appetite. She was also encouraged to increase her fluid intake. Regarding urinary retention, urology has been consulted and should see the patient today. She voided earlier but seems she is still retaining. Will defer further management to urology. Internal medicine will sign off for now. Do not hesitate to call us if you have any further questions or concerns. Review of Systems - Medications/Allergies Allergies/Adverse Reactions: Allergies Allergy/AdvReac Type Severity Reaction Status Date / Time codeine Allergy Rash Verified 05/27/17 12:19 Medications: Current Medications Acetaminophen (Tylenol) 650 mg PO Q4H PRN PRN Reason: VEGA/ T > 101F; Mild Pain (1-3) Last Admin: 06/05/17 23:57 Dose: 650 mg Hydrocodone Bitart/Acetaminophen ([place] 7.5/325) 1 tab PO Q4H PRN PRN Reason: Mild Pain (1-3) Hydrocodone Bitart/Acetaminophen ([place] 7.5/325) 2 tab PO Q4H PRN PRN Reason: Moderate Pain (4-6) Hydrocodone Bitart/Acetaminophen ([place] 10/325) 1 tab PO Q4H PRN PRN Reason: Moderate Pain (4-6) Hydrocodone Bitart/Acetaminophen ([place] 10/325) 2 tab PO Q4H PRN PRN Reason: Severe Pain (7-10) Amlodipine Besylate (Norvasc) 5 mg PO DAILY [facility] Last Admin: 06/08/17 11:18 Dose: 5 mg Aspirin (Ecotrin) 81 mg PO BID [facility] Last Admin: 06/08/17 11:19 Dose: 81 mg Atenolol (Tenormin) 50 mg PO HS [facility] Last Admin: 06/07/17 22:16 Dose: 50 mg Diphenhydramine HCl (Benadryl) 25 mg PO Q6H PRN PRN Reason: Itching Fentanyl (Sublimaze) 50 mcg IV Q1H PRN PRN Reason: BREAKTHROUGH PAIN Fentanyl (Sublimaze) 100 mcg SLOW IVP Q1H PRN PRN Reason: Severe Pain (7-10) Ferrous Gluconate (Fergon) 324 mg PO BID [facility] Last Admin: 06/08/17 11:18 Dose: 324 mg Hydralazine HCl (Apresoline) 10 mg SLOW IVP Q6H PRN PRN Reason: SBP Greater Than 170 Last Admin: 06/05/17 23:57 Dose: 10 mg Hydrochlorothiazide (Hydrochlorothiazide) 25 mg PO QAM [facility] Last Admin: 06/08/17 11:17 Dose: 25 mg Bupivacaine HCl 50 ml/ Sodium (Chloride) 100 mls @ 0 mls/hr NERVE BLCK INF [facility] PRN Reason: As Directed Last Admin: 06/05/17 00:32 Dose: 100 mls Dextrose/Sodium Chloride (D5 1/2 Ns) 1,000 mls @ 100 mls/hr IV .Q10H [facility] Last Admin: 06/08/17 13:58 Dose: Not Given Iron/Minerals/Multivitamins (Theragran M) 1 tab PO DAILY [facility] Last Admin: 06/08/17 11:19 Dose: 1 tab Levothyroxine Sodium (Synthroid) 50 mcg PO 0600 [facility] Last Admin: 06/08/17 05:57 Dose: 50 mcg Ondansetron HCl (Zofran) 4 mg IVP Q6H PRN PRN Reason: Nausea/Vomiting Promethazine HCl (Phenergan) 12.5 mg IM Q4H PRN PRN Reason: Nausea Senna/Docusate Sodium (Senokot S) 2 tab PO BID [facility] Last Admin: 06/08/17 11:19 Dose: 2 tab Simvastatin (Zocor) 20 mg PO HS [facility] Last Admin: 06/07/17 22:16 Dose: 20 mg Sodium Chloride (Flush - Normal Saline) 10 ml IVF PRN PRN PRN Reason: Saline Flush Last Admin: 06/08/17 11:17 Dose: 10 ml Tramadol HCl (Ultram) 50 mg PO Q6H PRN PRN Reason: Mild Pain (1-3) Tramadol HCl (Ultram) 100 mg PO Q6H PRN PRN Reason: Moderate Pain 4-6 Last Admin: 06/05/17 00:32 Dose: 100 mg Zolpidem Tartrate (Ambien) 5 mg PO HSPRN PRN PRN Reason: Insomnia
--- NOTE | 2017-06-08 17:34 | CON ---
DATE OF CONSULTATION: 06/08/2017 DATE OF HOSPITAL ADMISSION: 06/03/2017 REASON FOR CONSULTATION: Concerns for urinary retention. HISTORY OF PRESENT ILLNESS: Ms. Cary Gallego is a very pleasant 82-year-old white female who w as in her usual state of health until this hospital admission. The patient has had some longstanding right knee osteoarthritis and underwent a right total knee arthroplasty on 06/03/2017. Ms. Gallego malhotra s been noted to have high postvoid residuals by bladder scan over the last few days including current postvoid bladder scan of about 275 mL. She does not have a known past history of urinary retention. She did have preoperative voided specimen which was concerning for possible infection and a subsequ ent catheterized specimen which apparently was negative. Ms. Gallego does not report any previous urin al tract infections. Ms. Christianson is 8, para 7. She had natural menopause in her 50s and has been postmenopausal fo r at least 30 years by her report. She has not been on hormonal replacement therapy either orally or with supplemental estrogens in the vagina. She does not report difficulties with constipation on hospitalization and reports two bowel movements since her knee operation was performed. She did h ave some troubles with narcotics immediately after her operation, but since then has done reasonably well. ALLERGIES: The patient reports an allergy to CODEINE. HOME MEDICATION LIST: Includes the following the followin. Atenolol 50 mg p.o. at bedtime. 2. Aspirin and Ecotrin 81 mg p.o. daily. 3. Norvasc 5 mg p.o. daily. 4. Hydrochlorothiazide 25 mg p.o. q.a.m. 5. Mirtazapine 30 mg p.o. at bedtime. 6. Levothyroxine 50 mcg p.o. q.a.m. PAST MEDICAL HISTORY: The patient has dyslipidemia, hypothyroidism, and hypertension. PAST SURGICAL HISTORY: None prior to this hospitalization. The patient is currently admitted for [facility] total knee arthroplasty. GENITOURINARY HISTORY: No history of previous bladder operations and evaluations by urologist or per [place] history of previous urologic disease. REVIEW OF SYSTEMS: HEAD, EYES, EARS, NOSE, AND THROAT: Negative. PULMONARY: Negative. Patient is a lifelong nonsmoker. CARDIAC: Negative. GASTROINTESTINAL: Patient reports normal bowel movement s. No history of constipation or diarrhea. No irritable bowel history. MUSCULOSKELETAL: Patient h as osteoarthritis affecting the right knee, now resolved. ENDOCRINOLOGIC: No history of diabetes. Review of systems is otherwise negative x12 systems. PHYSICAL EXAMINATION: VITAL SIGNS: Temperature is 99.2, pulse 68, respirations 14, O2 saturation on room air is 93%, and b lood pressure is 153/72. GENERAL: This is a pleasant, awake, alert, white female who is a good historian. HEAD, EYES, EARS, NOSE AND THROAT: Extraocular movements are intact. Sclerae are anicteric. Oropha rynx is clear. NECK: Supple. LUNGS: Clear to auscultation bilaterally. CARDIOVASCULAR: Regular rate and rhythm. ABDOMEN: Soft and nontender. There are no surgical incisional scars. Percussion of the abdomen rev eals no fullness or tenderness in the suprapubic area. She has some degree of obesity. BACK: No costovertebral ankle tenderness on either side. PELVIC: Examination finds low estrogen type changes with loss of rugation of the vaginal carey. The re is periurethral pallor and beefy red coloration of the patient's urethral meatus. There is no evid ence of vaginal discharge. There is no significant anterior vaginal wall descent or evidence of pres ent procidentia. EXTREMITIES: Patient has had a recent right knee arthroplasty. Dressing remains in place in the mid line for that. The patient's left knee does not flex or bend. SKIN SURVEY: No abnormal lesions observed. No scars except for recent incisional scar at the right knee. LABORATORY DATA: The patient's hemoglobin is 10.1, hematocrit of 29.1. There is no elevation of the white count. At this point, she did have peak white count of 14.1 thousand on 06/05/2017. Serum ch emistry shows the patient's blood urea nitrogen at 20, creatinine of 0.98 indicating relative dehydra tion with BUN to creatinine ratio in excess of 20. The patient had urinalysis obtained on 06/05/2017 which showed 100 mg per deciliter of protein, small amount of urine blood. Microscopic analysis jean wed 21-50 red cells with 0-3 white cells present. ASSESSMENT AND PLAN: 1. Concerns for urinary tract infection. The patient is not reporting symptoms traceable to that an d would certainly a catheterized urinary specimen, which seem appropriate in this setting. We will r ecommend that be done today. 2. Complaints of urinary retention. The patient has been bladder scanned with postvoid residuals in the range of 275 mL or so by bladder scan. There are sometimes inaccuracies, particularly in the po stoperative period with bladder scanning depending upon abdominal ascites. The patient should underg o a catheterized in and out assessment or possibly leaving Sanchez in place if patient's bladder is fu ll, or has a volume of greater than 100 mL. The patient may be discharged to rehabilitation with a F oley catheter in place. 3. Low estrogen changes postmenopausal atrophic vaginitis. The patient has findings that are consis tent with estrogen deficiency, which would be expected given her age and history of natural menopause . Application of estrogen cream to the urethra may improve urethral function and may aid in emptying the bladder. 4. Gastrointestinal function function. The patient is not reporting constipation which is a known c ause of urinary retention in elderly females. At the present time, she appears to have an adequate b owel program. FOLLOWUP: Patient may follow up in my clinic or may undergo a formal voiding trial in rehabilitation if a Sanchez catheter is deemed necessary today.
[2017-06-08] MEDS ORDERED: Estrogens, Conjugated 30 GM TUBE VAG SCH (21:00)
[2017-06-08] MEDS ORDERED: Mirtazapine 30 MG TAB PO SCH (21:00)
[2017-06-08] MEDS: Atenolol 50 MG TAB PO SCH (22:19)
[2017-06-08] MEDS: Simvastatin 20 MG TAB PO SCH (22:21)
[2017-06-08 23:22] LABS: Bilirubin Negative (Negative); Blood, Urine Negative (Negative); Clarity CLEAR (Clear); Glucose, Urine (Dipstick) Negative (Negative); Leukocyte Negative (Negative); Nitrite Negative (Negative); Protein, Urine (Dipstick) 100 mg/dL (Neg-Trace); Urobilinogen 0.2 mg/dL (0.2-1.0); pH, Urine 5.5 (5.0-9.0)
[2017-06-08 23:23] LABS: Bacteria/HPF None Seen HPF (None Seen); Hyaline Casts/LPF 0-3 HYALINE CAST LPF (0-3 Hyaline); Pathc Cast-AUWi Flag 0.14 (0-2.49); RBC/HPF 0-3 HPF (0-3); Squamous Epithelial None Seen HPF (0-3); WBC/HPF 0-3 HPF (0-3)
[2017-06-09 05:26] LABS: Mean Corpuscular HGB CONC 33.8 g/dL (32.0-36.0); Mean Corpuscular Hemoglobin 30.8 pg (27.0-31.0); Mean Corpuscular Volume 91.2 fl (81.0-99.0); Mean Platelet Volume 8.1 fL (7.4-10.4); Platelet Count 261 thou/uL (130-400); RBC Distribution Width 12.2 % (11.5-14.5); Red Blood Cell (RBC) Count 3.25 mill/uL (4.20-5.40); White Blood Cell (WBC) Count 5.9 thou/uL (4.8-10.8)
[2017-06-09] MEDS: Levothyroxine Sodium 50 MCG TAB PO SCH (05:49)
[2017-06-09] MEDS: Dextrose 5 %-0.45 % NaCl 1,000 ML IV SCH ×2 (07:35→10:12)
[2017-06-09] MEDS ORDERED: Multivit, Chewable SF 1 TAB PO SCH (09:00)
[2017-06-09] MEDS: Aspirin 81 mg Enteric Coated Tablet PO SCH (09:14)
[2017-06-09] MEDS: Ferrous Gluconate 324 MG TAB PO SCH (09:14)
[2017-06-09] MEDS: Amlodipine 5 MG TAB PO SCH (09:14)
[2017-06-09] MEDS: Hydrochlorothiazide 25 MG TAB PO SCH (09:14)
[2017-06-09] MEDS: Senokot S 8.6-50 MG TAB PO SCH (09:15)
[2017-06-09] MEDS: Multivitamin W/ Minerals 1 TAB PO SCH (09:15)
[2017-06-09 18:47] VITALS: BP 150/73; TEMP 99.8
--- NOTE | 2017-06-12 08:38 | DIS ---
DATE OF ADMISSION: 06/03/2017 DATE OF DISCHARGE: 06/09/2017 PREOPERATIVE DIAGNOSIS: Right knee osteoarthritis. POSTOPERATIVE DIAGNOSIS: Right knee osteoarthritis. PROCEDURE: The patient underwent a right total knee arthroplasty. HOSPITAL STAY: The patient had some kidney issues that were followed by our [facility] [place] Hospitalist Froylan giraldo. She was also consulted by Urology. Her symptoms seem to be better throughout her stay and by , kidneys and everything else was looking good enough that she was able to be discharged home. DISCHARGE CONDITION: Good/stable. DISPOSITION: Home with family. FOLLOWUP: Followup would be in 2-[address] Olson. Follow up with her neurologist would be set by their service. DISCHARGE MEDICATIONS: Given with usage instructions. This is Nestor Cazares PA-C dictating for Joshua Olson M.D.
== END 2017-06-09 19:13 | disposition home or self-care (01) ==
LOC: SDC 05:25 → SJJU 10:49 → SDC 06-09 19:13
PROVIDERS: ATTEND Orthopaedic Surgery
PROC: 0SRC0J9 Replacement of Right Knee Joint with Synthetic Substitute, Cemented, Open Approach (ICD-10-PCS; principal; 2017-06-03)
DX: M17.11 Unilateral primary osteoarthritis, right knee (principal); I10 Essential (primary) hypertension; E03.9 Hypothyroidism, unspecified; E78.5 Hyperlipidemia, unspecified; Z88.5 Allergy status to narcotic agent
CPT/HCPCS: 27447; 70450; 73560; 76770; 80053; 81001 ×2; 83605; 85025; 85027; 87086; 97110 ×4; 97116 ×5; 97139 ×5; 97150; 97530 ×5; 97535; C1713; C1776; G8978; G8979; G8987; G8988; 36415; 81003; 81015; J0360; J1100; J1885; J1956; J2001; J2250; J2405; J2704; J2795; J3010; J3370; J3490; J7050

== ENCOUNTER 2017-09-18 11:21 | Outpatient (CLI) | payer MEDICARE, OTHER, MEDICAID ==
[2017-09-18 14:05] LABS: #Eosinphils 0.2 thou/uL (0.0-0.7); #Lymphocytes 1.7 thou/uL (1.20-3.40); #Monocytes 0.4 thou/uL (0.11-0.59); #Neutrophils 3.8 thou/uL (1.40-6.50); %Basophils 0.8 % (0.0-1.0); %Eosinophils 3.3 % (0.0-10.0); %Lymphocytes 27.4 % (21.0-51.0); %Monocytes 5.8 % (0.0-10.0); %Neutrophils 62.7 % (42.0-75.0); Hemoglobin 11.5 g/dL (12.0-16.0); Mean Corpuscular HGB CONC 32.7 g/dL (32.0-36.0); Mean Corpuscular Hemoglobin 29.7 pg (27.0-31.0); Mean Platelet Volume 9.1 fL (7.4-10.4); Platelet Count 244 thou/uL (130-400); RBC Distribution Width 12.9 % (11.5-14.5); Red Blood Cell (RBC) Count 3.87 mill/uL (4.20-5.40); White Blood Cell (WBC) Count 6.1 thou/uL (4.8-10.8)
[2017-09-18 14:06] LABS: Bilirubin Negative (Negative); Blood, Urine Negative (Negative); Clarity CLEAR (Clear); Glucose, Urine (Dipstick) Negative (Negative); Leukocyte Small (Negative); Nitrite Negative (Negative); Protein, Urine (Dipstick) 100 mg/dL (Neg-Trace); Urobilinogen 0.2 mg/dL (0.2-1.0)
[2017-09-18 14:11] LABS: Bacteria/HPF None Seen HPF (None Seen); Hyaline Casts/LPF 0-3 HYALINE CAST LPF (0-3 Hyaline); Pathc Cast-AUWi Flag 0.29 (0-2.49); Squamous Epithelial 0-3 HPF (0-3)
[2017-09-18 14:15] LABS: Prothrombin Time 12.9 SEC (12.0-14.7)
[2017-09-18 14:26] LABS: Anion Gap 15 mmol/L (10-20); BUN (Urea Nitrogen) 21 mg/dL (9.8-20.1); Calc. Creatinine Clearance 0 mL/min (70-130); Calcium 9.7 mg/dL (7.8-10.44); Carbon Dioxide 24 mmol/L (23-31); Chloride 107 mmol/L (98-107); Estimated GFR-MDRD 62; Glucose 89 mg/dL (83-110); Potassium 3.6 mmol/L (3.5-5.1); Sodium 142 mmol/L (136-145)
== END 2017-09-18 11:22 | disposition home or self-care (01) ==
LOC: LABBT 11:21
PROVIDERS: ATTEND Orthopaedic Surgery
DX: Z01.812 Encounter for preprocedural laboratory examination (principal); M17.12 Unilateral primary osteoarthritis, left knee
CPT/HCPCS: 80048; 81001; 85025; 85610; 86850; 86900; 86901; 87081

== ENCOUNTER 2017-09-23 05:34 | Day surgery (SDC) | payer MEDICARE, OTHER, MEDICAID ==
[2017-09-18 11:55] VITALS: BMI 23.4
[2017-09-23] MEDS ORDERED: Ondansetron PF 4 MG/2 ML Vial IVP PRN (06:38)
[2017-09-23] MEDS ORDERED: traMADol HCl 50 MG TAB PO PRN ×2 (06:38)
[2017-09-23] MEDS ORDERED: Promethazine HCl 25 MG/ML VIAL IM PRN ×2 (06:38→09:01)
[2017-09-23] MEDS ORDERED: Zolpidem Tartrate 5 MG TAB PO PRN (06:38)
[2017-09-23] MEDS ORDERED: Fentanyl 100 MCG/2 ML VIAL IV PRN (06:40)
[2017-09-23] MEDS ORDERED: HYDROcodone/Acetaminophen 7.5/325 mg Tablet PO PRN ×2 (06:42→06:43)
[2017-09-23] MEDS ORDERED: Ropivacaine HCl/PF 250 ML in Premix Bag 1 BAG NERVE BLCK SCH (06:44)
[2017-09-23] MEDS ORDERED: Promethazine HCl 25 MG/ML VIAL SLOW IVP PRN (09:01)
[2017-09-23] MEDS ORDERED: Ondansetron HCl/PF 4 MG/2 ML Vial IVP PRN (09:01)
[2017-09-23] MEDS ORDERED: Tranexamic Acid 1,000 MG in Sodium Chloride 0.9% 100 ML IVPB SCH (09:15)
--- NOTE | 2017-09-23 09:18 | OP ---
DATE OF PROCEDURE: 09/23/2017 PREOPERATIVE DIAGNOSIS: Left total knee arthroplasty. POSTOPERATIVE DIAGNOSIS: Left total knee arthroplasty. PROCEDURE PERFORMED: Left total knee arthroplasty. STAFF: Joshua Olson M.D. MARINE UNDERWRITER: John Suresh PA-C. ANESTHESIA: Ana. The patient received a LMA with single shot sciatic. Continuous catheter for outer canal. ESTIMATED BLOOD LOSS: 100 mL. TOURNIQUET TIME: 58 minutes at 300 mmHg. ANTIBIOTICS: Vancomycin 1 gram, Ancef 2 grams, Levaquin 500 mg. She received TXA 1 gram preop and will receive it postop. IMPLANTS: The patient had a [place] [employer] size 2 CS femur, size 2 tibial tray, a 9 CS poly and S27 patella. COMPLICATIONS: None. HISTORY OF PRESENT ILLNESS: Ms. Gallego is a pleasant 82-year-old female who presented to me with left knee pain. She had a right total knee replaced and had good relief. The patient desired operative intervention. The patient had a flexion contraction on full range of motion. I discussed the risks and benefits of surgery to include pain, scar, bleeding, infection, damage to vital structures, decreased range of motion or strength, loss of life or limb. The patient had some issues with pain medication postoperatively last time and we will adjust that accordingly. The patient understood the risks and benefits and elected to proceed. PROCEDURE IN DETAIL: Timeout was performed designating the patient's left lower extremity as the operative site based on site, consents, markings. After timeout, the patient's left lower extremity was prepped and draped in sterile fashion. Tourniquet was brought up and left up for a total of 58 minutes. We made an anterior and lateral approach medial parapatellar arthrotomy, everted the patella, cut our menisci, the medial soft tissue release, excised our fat pad. After we had done that we mapped out our distal femur. . We mapped it out , cut in 0 degrees varus valgus, 4 degrees of slope and 9 respectively, removed the bone. We then placed our external rotation gig into position. After we had taken out our ACL, we cut and made our menisci for exposure, we pinned the tray. I felt that a 2 was sized medial lateral the best, had a little bit of notching but I felt that it would be the best fit for the femur. We mapped out a 2 and cut 0 degrees varus valgus and a 2 to cut the anterior, posterior chamfer cuts, removed all the osteophytes. We then placed our PCL retractor in position, cut off the tibial spine, exposed our tibia, mapped out our tibia with pinning our block into place and cut and 0 degrees varus valgus, 4 degrees posterior slope and 2 and 8 respectively, removed all the osteophytes. We placed a laminar tensioning machine operator, removed our medial and lateral osteophytes, decompressed the PCL, took off posterior osteophytes, laminar tensioning machine operator and decompressed the medial compartment with rongeur. After completion of this, we pinned. We placed our tray into position, we pinned the medial pin, placed our 9 mm poly, pinned our femur into position. We allowed the knee to flex and extend to find the tibia's rotation with the rotation guide to look at its alignment. I liked the overall alignment. After this we placed our lateral pin into position, gave it a full extension and good varus valgus and flexion stability. We liked it. We then everted the patellar, cut it from about 20 mm down to about 13 and placed a A27 patella into position. We then trialed and the patient had good overall alignment and tracking. Everted the patella, drilled our holes for the lugs for our femur, removed all the implants, cut our keel, our tibia that was remaining and then cemented in our tibia, placed our poly, cemented our femur, removed excess cement before and after each step and then cemented our tibia, placed the patient in extension. Washed, flexed her, removed any cement and then washed again and closed the medial patellar retinaculum with #2 Quill, 0 Quill, 2-0 Quill and glue. The patient will observed, and then admitted likely because of her age comorbities. Will need short stay in rehab. IVAN
--- NOTE | 2017-09-23 09:48 | RAD ---
2 VIEW LEFT KNEE: Date: 09/23/17 INDICATION: Postoperative evaluation. FINDINGS: There is a left knee arthroplasty in place without evidence of hardware complication. Expected postpr ocedural findings of the regional soft tissues are seen. IMPRESSION: Left knee radiographs reveal postoperative placement of arthroplasty, without hardware complication. POS: AKANKSHA
[2017-09-23] MEDS ORDERED: Ropivacaine 0.2% HCl/PF (40 MG/20 ML VIAL) ONE (09:52)
[2017-09-23] MEDS ORDERED: Ropivacaine 0.5% HCl/PF (150 MG/30 ML VIAL) ONE (09:52)
[2017-09-23] MEDS ORDERED: Lidocaine 1% PF 5 ML VIAL ONE (10:17)
[2017-09-23] MEDS ORDERED: PROPOFOL 200 MG/20 ML VIAL ONE (10:17)
[2017-09-23] MEDS ORDERED: Ketorolac Tromethamine 30 MG/ML VIAL ONE (10:17)
[2017-09-23] MEDS ORDERED: Acetaminophen 325 MG TAB PO PRN (10:28)
[2017-09-23] MEDS ORDERED: diphenhydrAMINE 25 MG CAP PO PRN (10:28)
[2017-09-23] MEDS: Dextrose 5 %-0.45 % NaCl 1,000 ML IV SCH ×2 (11:45→21:40)
[2017-09-23] MEDS: Ketorolac Tromethamine 30 MG/ML VIAL IVP SCH ×2 (14:13→21:31)
[2017-09-23] MEDS ORDERED: Ondansetron ODT 4 MG TAB PO PRN (14:41)
[2017-09-23] MEDS ORDERED: Senokot 8.6 MG TAB PO PRN (14:41)
[2017-09-23] MEDS ORDERED: Mag-Al 1200 mg/1200 mg/30 ML UDCUP PO PRN (14:41)
[2017-09-23] MEDS ORDERED: Diabetic Tussin 200 MG/10 ML UDCUP PO PRN (14:41)
[2017-09-23] MEDS ORDERED: Milk Of Magnesia 30 ML UDCUP PO PRN (14:41)
[2017-09-23] MEDS ORDERED: Artificial Tear Sol 15 ML BOT EA EYE PRN (14:41)
[2017-09-23] MEDS ORDERED: hydrALAZINE 20 MG/ML VIAL SLOW IVP PRN (14:41)
[2017-09-23] MEDS ORDERED: Loratadine 10 MG TAB PO PRN (14:41)
[2017-09-23] MEDS ORDERED: Sodium Chloride 0.65% Nasal 44 ML BOT EA NARE PRN (14:41)
[2017-09-23] MEDS ORDERED: Loperamide HCl 2 MG CAP PO PRN (14:41)
[2017-09-23] MEDS ORDERED: Chloraseptic Spray 180 ml Bottle PO PRN (14:41)
[2017-09-23] MEDS ORDERED: Eucerin (Mineral Oil/Petrolatum,White) 30 gm Jar TOP PRN (14:41)
--- NOTE | 2017-09-23 14:44 | PDOC.PN ---
- Subjective Encounter Start Date: 09/23/17 Encounter Start Time: 14:15 -: old records requested/rev consulted for medical management old record reviewed old labs reviewed Patient seen and examined. No new complaints. No overnight events - Objective Resuscitation Status: Resuscitation Status FULL:Full Resuscitation MAR Reviewed: Yes Vital Signs & Weight: Vital Signs (12 hours) Temp Pulse Resp BP Pulse Ox 09/23/17 10:00 97.0 F L 64 18 173/66 H 95 Weight Weight 116 lb I&O: 09/22/17 09/23/17 09/24/17 06:59 06:59 06:59 Intake Total 50 Balance 50 Radiology Reviewed by me: Yes (knee xray reviewed) EKG Reviewed by me: Yes (old record reviewed) Phys Exam - Physical Examination Constitutional: NAD HEENT: PERRLA, moist MMs, sclera anicteric Neck: no JVD, supple Respiratory: no wheezing, no rales, no rhonchi Cardiovascular: RRR, no significant murmur, no rub Gastrointestinal: soft, non-tender, no distention, positive bowel sounds montano+ Musculoskeletal: no edema, pulses present LEFT KNEE WITH DRESSING, nerve block in place Neurological: non-focal, normal sensation, moves all 4 limbs Psychiatric: normal affect, A&O x 3 Skin: no rash, normal turgor Dx/Plan (1) Status post total left knee replacement Code(s): Z96.652 - PRESENCE OF LEFT ARTIFICIAL KNEE JOINT Status: Acute (2) Dyslipidemia Code(s): E78.5 - HYPERLIPIDEMIA, UNSPECIFIED Status: Chronic Comment: stable with treatment (3) HTN (hypertension) Code(s): I10 - ESSENTIAL (PRIMARY) HYPERTENSION Status: Chronic Qualifiers: Comment: controlled (4) Hypothyroidism Code(s): E03.9 - HYPOTHYROIDISM, UNSPECIFIED Status: Chronic Qualifiers: Comment: stable with treatment - Plan cont current plan of care, plan discussed w/ family, PT/OT * continue aspirin for DVT prophylaxis * add pepcid for GI prophylaxis * home medication reconciled * pain control with pain meds as below * nerve block as per anesthesia * PT/OT as per [facility] protocol * medical problems are stable * medication reviewed as below * symptomatic treatment. * code status- full code Review of Systems - Review of Systems Eyes: negative: Pain, Vision Change, Conjunctivae Inflammation, Eyelid Inflammation, Redness, Other ENT: negative: Ear Pain, Ear Discharge, Nose Pain, Nose Discharge, Nose Congestion, Mouth Pain, Mouth Swelling, Throat Pain, Throat Swelling, Other Respiratory: negative: Cough, Dry, Shortness of Breath, Hemoptysis, SOB with Excertion, Pleuritic Pain, Sputum, Wheezing Cardiovascular: negative: chest pain, palpitations, orthopnea, paroxysmal nocturnal dyspnea, edema, light headedness, other Gastrointestinal: negative: Nausea, Vomiting, Abdominal Pain, Diarrhea, Constipation, Melena, Hematochezia, Other Genitourinary: negative: Dysuria, Frequency, Incontinence, Hematuria, Retention , Other Musculoskeletal: negative: Neck Pain, Shoulder Pain, Arm Pain, Back Pain, Hand Pain, Leg Pain, Foot Pain, Other Skin: negative: Rash, Lesions, Hemant, Bruising, Other - Medications/Allergies Allergies/Adverse Reactions: Allergies Allergy/AdvReac Type Severity Reaction Status Date / Time codeine Allergy Rash Verified 05/27/17 12:19 Medications: Current Medications Acetaminophen (Tylenol) 650 mg PO Q4H PRN PRN Reason: VEGA/ T > 101F; Mild Pain (1-3) Hydrocodone Bitart/Acetaminophen ([place] 7.5/325) 1 tab PO Q4H PRN PRN Reason: Pain 1-3 Hydrocodone Bitart/Acetaminophen ([place] 7.5/325) 2 tab PO Q4H PRN PRN Reason: Pain 4-6 Al Hydroxide/Mg Hydroxide (Maalox) 15 ml PO Q4H PRN PRN Reason: Heartburn or Indigestion Artificial Tears (Tears Naturale) 0 drop EA EYE PRN PRN PRN Reason: Dry Eyes Aspirin (Ecotrin) 81 mg PO BID [facility] Cefazolin Sodium (Ancef) 2 gm SLOW IVP 0800,1600,2359 [facility] Stop: 09/24/17 00:00 Diphenhydramine HCl (Benadryl) 25 mg PO Q6H PRN PRN Reason: Itching Famotidine (Pepcid) 20 mg PO BID [facility] Fentanyl (Sublimaze) 50 mcg IV Q1H PRN PRN Reason: .BREAKTHROUGH PAIN Ferrous Gluconate (Fergon) 324 mg PO BID [facility] Guaifenesin (Robitussin Sf) 200 mg PO Q4H PRN PRN Reason: Cough Hydralazine HCl (Apresoline) 10 mg SLOW IVP Q4H PRN PRN Reason: Systolic BP > 180 Ropivacaine 250 ml/ Device 250 mls @ 0 mls/hr NERVE BLCK INF [facility] PRN Reason: As Directed Dextrose/Sodium Chloride (D5 1/2 Ns) 1,000 mls @ 100 mls/hr IV .Q10H [facility] Last Admin: 09/23/17 11:45 Dose: Not Given Vancomycin HCl 1 gm/ Device 200 mls @ 200 mls/hr IVPB 1800 [facility] Stop: 09/23/17 18:59 Iron/Minerals/Multivitamins (Theragran M) 1 tab PO DAILY [facility] Ketorolac Tromethamine (Toradol) 15 mg IVP Q8HR [facility] Stop: 09/24/17 14:01 Last Admin: 09/23/17 14:13 Dose: 15 mg Loperamide HCl (Imodium) 2 mg PO PRN PRN PRN Reason: Diarrhea/Loose Stools Loratadine (Claritin) 10 mg PO DAILYPRN PRN PRN Reason: Sinus Symptoms Magnesium Hydroxide (Milk Of Magnesium) 30 ml PO DAILYPRN PRN PRN Reason: Constipation Mineral Oil/White Petrolatum (Eucerin Cream) 0 gm TOP BIDPRN PRN PRN Reason: Dry Skin Ondansetron HCl (Zofran) 4 mg IVP Q6H PRN PRN Reason: Nausea/Vomiting Ondansetron HCl (Zofran Odt) 4 mg PO Q6H PRN PRN Reason: Nausea/Vomiting Phenol (Chloraseptic [place] 180 Ml Bot) 0 ml PO PRN PRN PRN Reason: Sore Throat Promethazine HCl (Phenergan) 12.5 mg IM Q4H PRN PRN Reason: Nausea Senna (Senokot) 2 tab PO HSPRN PRN PRN Reason: Constipation Senna/Docusate Sodium (Senokot S) 2 tab PO BID [facility] Sodium Chloride (Flush - Normal Saline) 10 ml IVF Q12HR [facility] Last Admin: 09/23/17 11:45 Dose: Not Given Sodium Chloride (Flush - Normal Saline) 10 ml IVF PRN PRN PRN Reason: Saline Flush Sodium Chloride ([place] Nasal [place] 0.65%) 0 ml EA NARE QIDPRN PRN PRN Reason: Nasal Congestion Tramadol HCl (Ultram) 50 mg PO Q6H PRN PRN Reason: Mild Pain (1-3) Tramadol HCl (Ultram) 100 mg PO Q6H PRN PRN Reason: Moderate Pain 4-6 Zolpidem Tartrate (Ambien) 5 mg PO HSPRN PRN PRN Reason: Insomnia
[2017-09-23] MEDS: CEFAZOLIN/Water 2 GM/20 ML SYRINGE SLOW IVP SCH ×2 (15:42→23:16)
[2017-09-23] MEDS ORDERED: Vancomycin HCl 1 GM in Premix Bag 1 BAG IVPB SCH (18:00)
[2017-09-23] MEDS ORDERED: Atorvastatin Calcium 10 MG TAB PO SCH (21:00)
[2017-09-23] MEDS: Aspirin 81 mg Enteric Coated Tablet PO SCH (21:32)
[2017-09-24] MEDS: Ketorolac Tromethamine 30 MG/ML VIAL IVP SCH (05:56)
[2017-09-24 06:16] LABS: Hemoglobin 9.8 g/dL (12.0-16.0); Mean Corpuscular Hemoglobin 30.5 pg (27.0-31.0); Mean Corpuscular Volume 89.7 fL (78.0-98.0); Mean Platelet Volume 9.2 fL (7.4-10.4); Platelet Count 179 thou/uL (130-400); RBC Distribution Width 13.3 % (11.5-14.5); Red Blood Cell (RBC) Count 3.22 mill/uL (4.20-5.40); White Blood Cell (WBC) Count 6.4 thou/uL (4.8-10.8)
[2017-09-24] MEDS: Dextrose 5 %-0.45 % NaCl 1,000 ML IV SCH (07:05)
[2017-09-24] MEDS: Aspirin 81 mg Enteric Coated Tablet PO SCH (08:01)
[2017-09-24] MEDS ORDERED: Multivitamin W/ Minerals 1 TAB PO SCH (09:00)
[2017-09-24] MEDS ORDERED: Ferrous Gluconate 324 MG TAB PO SCH (09:00)
[2017-09-24] MEDS ORDERED: Senokot S 8.6-50 MG TAB PO SCH (09:00)
[2017-09-24] MEDS ORDERED: Famotidine 20 MG TAB PO SCH (09:00)
--- NOTE | 2017-09-24 11:09 | PRG ---
DATE OF ADMISSION: 09/23/2017 DATE OF DISCHARGE: 09/24/2017 DISCHARGE DISPOSITION: Home. PRIMARY DISCHARGE DIAGNOSIS: Status post left total knee replacement. SECONDARY DISCHARGE DIAGNOSES: Hypothyroidism, hypertension, dyslipidemia, normocytic normochromic a nemia, osteoarthritis. PRIMARY PROCEDURE/OPERATION: Left total knee replacement by Dr. Olson. RADIOLOGICAL INVESTIGATION: Knee x-ray. SIGNIFICANT LABORATORY DATA: WBC 6.4, hemoglobin 9.8, platelet 179. DISCHARGE MEDICATIONS: Atenolol 50 mg p.o. at bedtime, hydrochlorothiazide 25 mg p.o. daily, Synthro id 50 mcg p.o. daily, Zocor 20 mg p.o. at bedtime, aspirin 81 mg p.o. b.i.d. Pain medication will de scott to primary team. CONTRAINDICATIONS: None. CODE STATUS: FULL CODE. INPATIENT CONSULTANTS: Dr. Olson was primary while in hospital. Sound Team was consulted for [facility] comanagement. TEST RESULTS PENDING ON DISCHARGE: None. ALLERGIES: CODEINE. DISCHARGE PLAN: Post hospital, the patient will follow up with Dr. Olson as instructed. The patie nt will follow up with primary care physician, Dr. Sai Leon as instructed. HOSPITAL COURSE: An 82-year-old female who has underlying history of osteoarthritis. She already malhotra d a right total knee replacement and at this time she was electively admitted by Dr. Olson for left total knee replacement which was done on 09/23/2017 without any complication. Postoperatively, at [facility], [facility] Team was consulted for medical comanagement. The patient's medical problems r emained stable. She was given aspirin for DVT prophylaxis. She had nerve block while in hospital. She was followed with the [facility] [place] protocol treatment. She did very well. At this point, dixon gonsales is doing very well. Her pain is under control. She will continue all her previous home medica tions including aspirin for DVT prophylaxis. Pain medication will be given by primary team. The patient is seen and examined at bedside today. All review of system reviewed with her and negati ve. Plan of care discussed with the patient's daughter at bedside. PHYSICAL EXAMINATION: VITAL SIGNS: Currently temperature 98.1, pulse 58, respiratory rate 18, saturation 96% on room air, blood pressure 136/66, weight 116 pounds. GENERAL: The patient is currently alert, awake, no obvious acute distress. HEAD: Normocephalic, atraumatic. EYES: Pupils round, reactive to light. Extraocular muscle intact. ENT: Oropharynx within normal limits. Moist mucous membranes. No oral lesion, no pharyngeal erythe ma, no exudate. NECK: Supple, no JVD, no thyromegaly, no carotid bruit. LUNGS: Clear to auscultation without any rhonchi or rales. CARDIAC: S1 and S2 regular without any murmur. ABDOMEN: Soft and benign. EXTREMITIES: Surgical site is clean and healthy. Good distal pulsation. NEUROLOGIC: Nonfocal examination. Overall, patient is medically stable for discharge today.
[2017-09-24 11:32] VITALS: TEMP 97.9
[2017-09-24] MEDS ORDERED: Ropivacaine 0.2% 550 ML 550 ML NERVE BLCK SCH (15:36)
[2017-09-24 16:11] VITALS: BP 194/72
== END 2017-09-24 16:54 | disposition home or self-care (01) ==
LOC: SDC 05:34 → SURG B 09:07 → SDC 09-24 16:54
PROVIDERS: ATTEND Orthopaedic Surgery
PROC: 0SRD0J9 Replacement of Left Knee Joint with Synthetic Substitute, Cemented, Open Approach (ICD-10-PCS; principal; 2017-09-23)
DX: M17.12 Unilateral primary osteoarthritis, left knee (principal); E03.9 Hypothyroidism, unspecified; I10 Essential (primary) hypertension; E78.5 Hyperlipidemia, unspecified; D64.9 Anemia, unspecified; Z88.5 Allergy status to narcotic agent; Z79.82 Long term (current) use of aspirin; Z79.899 Other long term (current) drug therapy
CPT/HCPCS: 27447; 73560; 85027; 97116 ×2; 97139 ×5; 97150; 97530 ×2; A4306; C1713; C1776; G8978; G8979; G8987; G8988; G8989; 96365; 96375; 96376; J0360; J1885; J2001; J2405; J2704; J2795; J3370

== ENCOUNTER 2018-05-31 20:21 | Emergency (ER) | payer MEDICARE, MEDICAID ==
--- NOTE | 2018-05-31 21:00 | RAD ---
Left wrist 3 views HISTORY: Left wrist pain. FINDINGS: Scaphoid waist and ulnar styloid are intact. There is joint space narrowing, osteophytosis, and subchondral sclerosis throughout the wrist, most pronounced at the first Carpometacarpal Joint and the Radiocarpal Joint. Lateral Subluxation at the First Carpometacarpal Joint with cortical remod eling of the articular surface of the trapezium. Mild articular surface erosions. Osseous structures are diffusely demineralized. No acute fracture or dislocation. IMPRESSION: Degenerative changes most pronounced at the first carpometacarpal joint. Osteoporosis.
[2018-05-31 21:11] LABS: #Eosinphils 0.1 thou/uL (0.0-0.7); #Lymphocytes 1.7 thou/uL (1.20-3.40); #Monocytes 0.8 thou/uL (0.11-0.59); #Neutrophils 5.3 thou/uL (1.40-6.50); %Basophils 0.6 % (0.0-1.0); %Eosinophils 0.8 % (0.0-10.0); %Lymphocytes 21.7 % (21.0-51.0); %Monocytes 9.9 % (0.0-10.0); %Neutrophils 67.1 % (42.0-75.0); Hemoglobin 12.2 g/dL (12.0-16.0); Mean Corpuscular HGB CONC 32.2 g/dL (32.0-36.0); Mean Corpuscular Hemoglobin 29.5 pg (27.0-31.0); Mean Corpuscular Volume 91.7 fL (78.0-98.0); Mean Platelet Volume 8.4 fL (7.4-10.4); Platelet Count 279 thou/uL (130-400); RBC Distribution Width 11.5 % (11.5-14.5); Red Blood Cell (RBC) Count 4.14 mill/uL (4.20-5.40); White Blood Cell (WBC) Count 7.9 thou/uL (4.8-10.8)
[2018-05-31 21:28] LABS: ALT (SGPT) Less than 7 U/L (8-55); AST (SGOT) 14 U/L (5-34); Albumin 3.7 g/dL (3.4-4.8); Alkaline Phosphatase 88 U/L (40-150); Anion Gap 14 mmol/L (10-20); BUN (Urea Nitrogen) 19 mg/dL (9.8-20.1); Bilirubin, Total 0.3 mg/dL (0.2-1.2); CRP (Inflammatory) 11.35 mg/dL (= or < 0.5); Calc. Creatinine Clearance 0 mL/min (70-130); Calcium 9.4 mg/dL (7.8-10.44); Carbon Dioxide 28 mmol/L (23-31); Chloride 99 mmol/L (98-107); Estimated GFR-MDRD 55; Globulin 3.7 g/dL (2.4-3.5); Glucose 93 mg/dL (83-110); Potassium 3.2 mmol/L (3.5-5.1); Protein, Total 7.4 g/dL (6.0-8.3); Sodium 138 mmol/L (136-145); Uric Acid 6.7 mg/dL (2.6-6.0)
== END 2018-05-31 22:06 | disposition home or self-care (01) ==
LOC: ERS 20:21
DX: M10.9 Gout, unspecified (principal); E03.9 Hypothyroidism, unspecified; E78.5 Hyperlipidemia, unspecified; I10 Essential (primary) hypertension; Z79.82 Long term (current) use of aspirin; Z79.899 Other long term (current) drug therapy
CPT/HCPCS: 36415; 80053; 84550; 85025; 85652; 86140